=== PATIENT | female | born 1995 | race Native Hawaiian/Other Pacific Islander ===

== ENCOUNTER 2020-10-16 00:47 | Emergency (ER) | payer OTHER ==
[2020-10-16] MEDS ORDERED: ACETAMINOPHEN 500 MG TAB (TYLENOL) PO ONE (01:45)
[2020-10-16] MEDS ORDERED: IBUPROFEN 800 MG (MOTRIN) TAB PO ONE (01:45)
[2020-10-16] MEDS ORDERED: LACTATED RINGERS 1,000 ML IV ONE (03:00)
[2020-10-16] MEDS ORDERED: cefTRIAXone 1,000 MG in WATER (STERILE) FOR INJECTION 10 ML IV ONE (03:00)
[2020-10-16 03:39] LABS: BASOPHILS % (AUTO) 0 % (0-10); EOSINOPHILS % (AUTO) 0 % (0-10)
--- NOTE | 2020-10-16 03:40 | ED Cough/URI ---
General Chief Complaint: Cough/Cold/Flu Symptoms Stated Complaint: COVID POSITIVE / SOB / SYNCOPE Nursing Triage Note: TO ED VIA POV AND AMBULATORY TO ROOM 9 WITH C/O SYMPTOMS STARTING 10/10 AND POSITIVE COVID ON 10/12. STATES FEELS LIKE SHE HAS BEEN "PASSING OUT". Source: patient History of Present Illness Date Seen by Provider: Oct 16, 2020 Time Seen by Provider: 01:40 Initial Comments PT ARRIVES VIA POV FROM HOME PT STATES SHE STARTED GETTING SICK ON Friday10/10/20, TESTED + FOR COVID ON Friday10/12/20--WAS AT A DRIVE THRU TESTING CENTER IN [place]. STATES SHE WAS IN TRAINING FOR HER WORK "[employer] AT THE TIME. SHE WAS NOT SEEN BY A DR. PT HAS NOT TAKEN ANYTHING FOR SYMPTOMS AT ANY TIME C/O COUGH AND CONGESTION C/O SLIGHT SHORTNESS OF BREATH C/O LOSS OF TASTE AND SMELL C/O SORE THROAT C/O NAUSEA AND DIARRHEA. NO VOMITING. NO ABDOMINAL PAIN C/O SUBJECTIVE FEVER/SWEATS/CHILLS--HAS NEVER TAKEN HER TEMPERATURES C/O HEADACHE C/O BODY ACHES C/O FATIGUE C/O DIZZINESS AND FEELS LIKE SHE IS GOING TO PASS OUT DENIES ANY PAST MEDICAL HISTORY, BUT HAS NOT SEEN A DR IN [facility] HERE OVER A YEAR AGO, AND HAS NEVER SEEN A DR HERE IN [facility]--SOMETIME IN [place], PERIODS ALWAYS IRREGULAR, NO CONTROL. PCP: NONE Allergies and Home Medications Allergies Coded Allergies: No Known Drug Allergies (Unverified , 10/16/20) Home Medications Azithromycin 500 Mg Tablet, 500 MG PO DAILY Prescribed by: EDEN BUSTILLO on 10/16/20399 Cefdinir 300 Mg Capsule, 300 MG PO BID Prescribed by: EDEN BUSTILLO on 10/16/20399 Dexamethasone 6 Mg Tablet, 6 MG PO DAILY Prescribed by: EDEN BUSTILLO on 10/16/20399 Patient Home Medication List Home Medication List Reviewed: Yes Review of Systems Review of Systems Constitutional: see HPI, chills, diaphoresis, dizziness, fever, malaise, weakness EENTM: see HPI, nose congestion, throat pain Respiratory: see HPI, cough; No phlegm; short of breath Cardiovascular: no symptoms reported Gastrointestinal: see HPI; No abdominal pain; diarrhea, loss of appetite, nausea; No vomiting Genitourinary: no symptoms reported Musculoskeletal: see HPI (BODY ACHES) Skin: no symptoms reported Psychiatric/Neurological: See HPI, Headache Hematologic/Lymphatic: No Symptoms Reported Immunological/Allergic: no symptoms reported Past [id number]-Sclagd-Yieggu Hx Patient Social History Tobacco Use?: No Smoking Status: Never a Smoker Smokeless Tobacco Frequency: Never a User Use of E-Cig and/or Vaping Kiran: Never a User Substance use?: No Alcohol Use?: Yes Alcohol Frequency: Once in a while Immunizations Up To Date COVID19 Vaccine Commercial Collections Specialist: NO VAX Past Medical History Surgeries: No Respiratory: No (COVID-19 10/10/20) Cardiac: No Neurological: No : No Reproductive Disorders: Yes (IRREGULAR PERIODS) Female Reproductive Disorders: Menstrual Problems Genitourinary: No Gastrointestinal: No Musculoskeletal: No Endocrine: Yes (OBESITY) HEENT: No Cancer: No Psychosocial: No Integumentary: No Blood Disorders: No Physical Exam Vital Signs - First Documented 10/16/20 04:33 Pulse Ox 96 Capillary Refill : Less Than 3 Seconds Height: '" Weight: lbs. oz. 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, no motor/sensory deficits, alert, normal mood/affect, oriented x 3 Skin: normal color (PT IS DARK SKINNED), warm/dry (VERY WARM, BUT MOIST/DAMP), damp; No rash Focused Exam Lactate Level 10/16/20 03:11: Lactic Acid Level 1.48 Lactic Acid Level Laboratory Tests Test 10/16/20 03:11 Lactic Acid Level 1.48 MMOL/L (0.50-2.00) Progress/Results/Core Measures Suspected Sepsis SIRS Temperature: Pulse: 103 Respiratory Rate: 16 Laboratory Tests 10/16/20 03:11: White Blood Count 3.9L Blood Pressure 129 /73 Mean: 91 10/16/20 03:11: Lactic Acid Level 1.48 Laboratory Tests 10/16/20 03:11: Creatinine 0.94, Platelet Count 113L, Total Bilirubin 0.4 Results/Orders Lab Results Laboratory Tests Test 10/16/20 03:11 Range/Units White Blood Count 3.9 L 4.3-11.0 10^3/uL Red Blood Count 5.44 H 3.80-5.11 10^6/uL Hemoglobin 15.4 11.5-16.0 g/dL Hematocrit 46 35-52 % Mean Corpuscular Volume 85 80-99 fL Mean Corpuscular Hemoglobin 28 25-34 pg Mean Corpuscular Hemoglobin Concent 33 32-36 g/dL Red Cell Distribution Width 12.2 10.0-14.5 % Platelet Count 113 L 130-400 10^3/uL Mean Platelet Volume 10.9 9.0-12.2 fL Immature Granulocyte % (Auto) 0 % Neutrophils (%) (Auto) 68 42-75 % Lymphocytes (%) (Auto) 25 12-44 % Monocytes (%) (Auto) 7 0-12 % Eosinophils (%) (Auto) 0 0-10 % Basophils (%) (Auto) 0 0-10 % Neutrophils # (Auto) 2.6 1.8-7.8 10^3/uL Lymphocytes # (Auto) 1.0 1.0-4.0 10^3/uL Monocytes # (Auto) 0.3 0.0-1.0 10^3/uL Eosinophils # (Auto) 0.0 0.0-0.3 10^3/uL Basophils # (Auto) 0.0 0.0-0.1 10^3/uL Immature Granulocyte # (Auto) 0.0 0.0-0.1 10^3/uL Percent Immature Platelet Fraction 4.0 0.0-7.6 % Erythrocyte Sedimentation Rate 13 0-20 MM/HR Sodium Level 139 135-145 MMOL/L Potassium Level 3.3 L 3.6-5.0 MMOL/L Chloride Level 102 98-107 MMOL/L Carbon Dioxide Level 22 21-32 MMOL/L Anion Gap 15 H 5-14 MMOL/L Blood Urea Nitrogen 9 7-18 MG/DL Creatinine 0.94 0.60-1.30 MG/DL Estimat Glomerular Filtration Rate 71 BUN/Creatinine Ratio 10 Glucose Level 164 H 70-105 MG/DL Lactic Acid Level 1.48 0.50-2.00 MMOL/L Calcium Level 8.7 8.5-10.1 MG/DL Corrected Calcium 8.7 8.5-10.1 MG/DL Total Bilirubin 0.4 0.1-1.0 MG/DL Aspartate Amino Transf (AST/SGOT) 37 H 5-34 U/L Alanine Aminotransferase (ALT/SGPT) 30 0-55 U/L Alkaline Phosphatase 60 40-136 U/L C-Reactive Protein High Sensitivity 0.61 H 0.00-0.50 MG/DL Total Protein 8.2 6.4-8.2 GM/DL Albumin 4.0 3.2-4.5 GM/DL My Orders Orders - EDEN BUSTILLO DO Acetaminophen Tablet (Tylenol Tablet) (10/16/20 01:45) Ibuprofen Tablet (Motrin Tablet) (10/16/20 01:45) Urine Bedside (10/16/20 01:50) Chest 1 View, Ap/Pa Only (10/16/20 02:03) Ed Iv/Invasive Line Start (10/16/20 02:49) Monitor-Rhythm Ecg Trace Only (10/16/20 02:49) Cbc With Automated Diff (10/16/20 02:49) Comprehensive Metabolic Panel (10/16/20 02:49) Hs C Reactive Protein (10/16/20 02:49) Lactic Acid Analyzer (10/16/20 02:49) Procalcitonin (Pct) (10/16/20 02:49) Blood Culture (10/16/20 02:49) Erythrocyte Sedimentation Rate (10/16/20 02:49) Ed Iv/Invasive Line Start (10/16/20 02:49) Lactated Ringers (Lr 1000 Ml Iv Solution (10/16/20 03:00) Ceftriaxone (Rocephin) (10/16/20 03:00) Dexamethasone Injection (Decadron Inje (10/16/20 03:00) Medications Given in ED Current Medications Medications Dose Ordered Sig/Jodi Route Start Time Stop Time Status Last Admin Dose Admin Acetaminophen 1,000 mg ONCE ONCE PO 10/16/20 01:45 10/16/20 01:47 DC 10/16/20 01:52 1,000 MG Ceftriaxone Sodium 1000 mg/ Sterile Water 10 ml @ 200 mls/hr ONCE ONCE IV 10/16/20 03:00 10/16/20 03:02 DC 10/16/20 03:32 200 MLS/HR Ibuprofen 800 mg ONCE ONCE PO 10/16/20 01:45 10/16/20 01:47 DC 10/16/20 01:52 800 MG Lactated Ringer's 1,000 ml @ 0 mls/hr Q0M ONCE IV 10/16/20 03:00 10/16/20 03:01 DC 10/16/20 03:18 1,000 MLS/HR Vital Signs/I&O 10/16/20 10/16/20 10/16/20 01:27 01:27 04:33 Temp 39.5 37.6 Pulse 103 94 Resp 16 16 B/P (MAP) 129/73 (91) 98/52 (91) Pulse Ox 96 O2 Delivery Room Air Room Air Room Air Capillary Refill : Less Than 3 Seconds Blood Pressure Mean: 91 Progress Note : Progress Note PLACED IN ISOLATION ROOM PPE WORN AT ALL TIMES GIVEN TYLENOL AND MOTRIN GIVEN IV FLUIDS GIVEN ROCEPHIN, ZITHROMAX AND DECADRON NO COUGH NO DYSPNEA NO HYPOXIA--O2 SATS 96-97% ON ROOM AIR THROUGHOUT ENTIRE ER STAY TEMP AND HEART RATE DOWN AT TIME OF DISMISSAL PT ADVISED THAT SHE WOULD BE A CANDIDATE FOR REGEN-COV, AND PT WOULD LIKE TO PROCEED WITH THIS TREATMENT. PAPERWORK COMPLETED Diagnostic Imaging Comments CXR--BIBASILAR INFILTRATES, PENDING RADIOLOGIST REVIEW Reviewed: Reviewed by Me Departure Impression Primary Impression: Pneumonia due to COVID-19 virus Additional Impressions: MILD HYPOKALEMIA MILD HYPERGLYCEMIA Obesity Disposition: 01 HOME, SELF-CARE Condition: Improved Departure-Patient Inst. Decision time for Depature: 03:58 Referrals: NO,LOCAL PHYSICIAN (PCP/Family) Primary Care Physician Patient Instructions: Atypical Pneumonia (Mycoplasma and Viral) (DC), Preventing the Spread of an Infectious Disease, COVID-19 (DC), REGEN-COV (casirivimab and imdevimab) FDA Fact Sheet, Recovery After COVID-19 Add. Discharge Instructions: CALL THIS MORNING TO SCHEDULE YOUR REGEN-COV INFUSION LOTS OF CLEAR LIQUIDS TYLENOL 1 GRAM/ MOTRIN 800 MG 4 TIMES A DAY FOR PAIN OR FEVER OVER THE COUNTER MUCINEX DM FOR COUGH, CLARITIN FOR CONGESTION QUARANTINE YOURSELF AND ALL HOUSEHOLD MEMBERS AND CLOSE CONTACTS FOR THE NEXT 2 WEEKS FOLLOW UP WITH OF CATHERINE IN 5-7 DAYS IF NO BETTER, RETURN TO ER IF YOUR SYMPTOMS WORSEN All discharge instructions reviewed with patient and/or family. Voiced understanding. Scripts Dexamethasone (Decadron) 6 Mg Tablet 6 MG PO DAILY, #10 TAB Prov: EDEN BUSTILLO DO 10/16/20 Cefdinir (Cefdinir) 300 Mg Capsule 300 MG PO BID, #20 CAP Prov: EDEN BUSTILLO DO 10/16/20 Azithromycin (Zithromax) 500 Mg Tablet 500 MG PO DAILY for 5 Days, #5 TAB Prov: EDEN BUSTILLO DO 10/16/20 Work/School Note: Local Medical Staff Listing EDEN BUSTILLO DO Oct 16, 2020 03:40
[2020-10-16 03:41] LABS: HEMATOCRIT 46 % (35-52); HEMOGLOBIN 15.4 g/dL (11.5-16.0); LYMPHOCYTES % (AUTO) 25 % (12-44); MEAN CORPUSCULAR HEMOGLOBIN 28 pg (25-34); MEAN CORPUSCULAR HGB CONC 33 g/dL (32-36); MEAN CORPUSCULAR VOLUME 85 fL (80-99); MEAN PLATELET VOLUME 10.9 fL (9.0-12.2); MONOCYTES # (AUTO) 0.3 10^3/uL (0.0-1.0); MONOCYTES % (AUTO) 7 % (0-12); NEUTROPHILS # (AUTO) 2.6 10^3/uL (1.8-7.8); NEUTROPHILS % (AUTO) 68 % (42-75); PLATELET COUNT 113 10^3/uL (130-400); WHITE BLOOD COUNT 3.9 10^3/uL (4.3-11.0)
[2020-10-16 03:48] LABS: POTASSIUM 3.3 MMOL/L (3.6-5.0)
[2020-10-16 03:49] LABS: CALCIUM 8.7 MG/DL (8.5-10.1)
[2020-10-16 03:51] LABS: TOTAL PROTEIN 8.2 GM/DL (6.4-8.2)
[2020-10-16 03:52] LABS: BILIRUBIN,TOTAL 0.4 MG/DL (0.1-1.0)
[2020-10-16 03:54] LABS: CREATININE SERUM 0.94 MG/DL (0.60-1.30)
[2020-10-16] MEDS ORDERED: CEFD300C3 PO (04:00)
[2020-10-16] MEDS ORDERED: AZIT500T PO (04:00)
[2020-10-16] MEDS ORDERED: DEXA6TAB6 PO (04:00)
[2020-10-16 04:01] LABS: ERYTHROCYTE SEDIMENTATION RATE 13 MM/HR (0-20)
[2020-10-16 04:33] VITALS: BP 98/52
--- NOTE | 2020-10-16 06:06 | Diagnostic Imaging Report ---
Clinical indication: Patient is Covid positive with shortness of breath. Exam: Portable chest x-ray upright view. Comparisons: None. Findings: Lungs/pleura: There are mild airspace opacities involving both lung bases concerning for lung infiltrates. There is no pneumothorax. There is no pleural effusion. Mediastinum: Unremarkable. Pulmonary vasculature: Unremarkable. Heart: Unremarkable. Bones/extrathoracic soft tissue: Unremarkable. Impression: There are mild airspace opacities involving both lung bases concerning for lung infiltrates/pneumonia. Dictated by: Dictated on workstation # [id number]
== END 2020-10-16 04:33 | disposition home or self-care (01) ==
LOC: ER 00:52
DX: U07.1 COVID-19 (principal); J12.82 Pneumonia due to coronavirus disease 2019; R73.9 Hyperglycemia, unspecified; E87.6 Hypokalemia; E66.9 Obesity, unspecified; Z73.0 Burn-out
CPT/HCPCS: 36415; 71045; 80053; 83605; 84145; 84703; 85025; 85652; 86141; 87040; 93041; 96361; 96374; 96375